=== PATIENT | female | born 1990 | race African-American/Black ===

== ENCOUNTER 2019-09-11 18:37 | Emergency (ER) | payer OTHER ==
[~2019-09-11] VITALS: Ht 170.2 cm; Wt 112.0 kg
--- NOTE | 2019-09-11 19:05 | PHYS DOC ---
Adult General Chief Complaint Chief Complaint: VAGINAL BLEEDING HPI HPI 29-year-old female presents to the emergency department with vaginal bleeding. 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 She describes onset of lower abdominal cramping and vaginal bleeding approximately 30 minute prior to her arrival. She denies any chest pain, shortness of breath, nausea, vomiting, fever. Nothing makes her symptoms worse, nothing makes them better. She does state she has had some clot that has passed. Review of Systems Review of Systems Constitutional: Denies fever or chills [] Respiratory: Denies cough or shortness of breath [] Cardiovascular: No additional information not addressed in HPI [] GI: + abdominal cramping : + vaginal bleeding Musculoskeletal: Denies back pain or joint pain [] Integument: Denies rash or skin lesions [] Neurologic: Denies headache, focal weakness or sensory changes [] All other systems were reviewed and found to be within normal limits, except as documented in this note. Allergies Allergies Allergies Coded Allergies Type Severity Reaction Last Updated Verified Penicillins Allergy Unknown 09/11/19 Yes Physical Exam Physical Exam Constitutional: Well developed, well nourished, no acute distress, non-toxic appearance. [] HENT: Normocephalic, atraumatic, bilateral external ears normal, oropharynx moist, no oral exudates, nose normal. [] Eyes: PERRLA, EOMI, conjunctiva normal, no discharge. [] Cardiovascular:Heart rate regular rhythm, no murmur [] Lungs & Thorax: Bilateral breath sounds clear to auscultation [] Abdomen: Bowel sounds normal, soft, no tenderness, no masses, no pulsatile masses. [] Skin: Warm, dry, no erythema, no rash. [] Extremities: No tenderness,no edema. [] Neurologic: Alert and oriented X 3, no focal deficits noted. [] Psychologic: Affect normal, judgement normal, mood normal. [] : Vaginal exam reveals mild external OS open, bleeding from the cervix appreciated, no evidence of tissue appreciated. Current Patient Data Vital Signs Vital Signs Date Time Temp Pulse Resp B/P (MAP) Pulse Ox O2 Delivery O2 Flow Rate FiO2 09/11/19 20:56 102 17 139/76 (97) 99 Room Air 09/11/19 18:50 98.9 98.9 Lab Values Laboratory Tests Test 09/11/19 19:07 White Blood Count 10.6 x10^3/uL (4.0-11.0) Red Blood Count 4.35 x10^6/uL (3.50-5.40) Hemoglobin 13.5 g/dL (12.0-15.5) Hematocrit 39.4 % (36.0-47.0) Mean Corpuscular Volume 91 fL (79-100) Mean Corpuscular Hemoglobin 31 pg (25-35) Mean Corpuscular Hemoglobin Concent 34 g/dL (31-37) Red Cell Distribution Width 12.8 % (11.5-14.5) Platelet Count 270 x10^3/uL (140-400) Neutrophils (%) (Auto) 62 % (31-73) Lymphocytes (%) (Auto) 31 % (24-48) Monocytes (%) (Auto) 6 % (0-9) Eosinophils (%) (Auto) 1 % (0-3) Basophils (%) (Auto) 1 % (0-3) Neutrophils # (Auto) 6.6 x10^3/uL (1.8-7.7) Lymphocytes # (Auto) 3.2 x10^3/uL (1.0-4.8) Monocytes # (Auto) 0.6 x10^3/uL (0.0-1.1) Eosinophils # (Auto) 0.1 x10^3/uL (0.0-0.7) Basophils # (Auto) 0.1 x10^3/uL (0.0-0.2) Maternal Serum HCG Beta Subunit 25428 mIU/mL (0-5) H Sodium Level 139 mmol/L (136-145) Potassium Level 3.4 mmol/L (3.5-5.1) L Chloride Level 102 mmol/L (98-107) Carbon Dioxide Level 26 mmol/L (21-32) Anion Gap 11 (6-14) Blood Urea Nitrogen 7 mg/dL (7-20) Creatinine 1.0 mg/dL (0.6-1.0) Estimated GFR (Cockcroft-Gault) 65.1 BUN/Creatinine Ratio 7 (6-20) Glucose Level 150 mg/dL (70-99) H Calcium Level 8.5 mg/dL (8.5-10.1) Total Bilirubin 0.1 mg/dL (0.2-1.0) L Aspartate Amino Transferase (AST) < 5 U/L (15-37) L Alanine Aminotransferase (ALT) 11 U/L (14-59) L Alkaline Phosphatase 62 U/L (46-116) Total Protein 7.2 g/dL (6.4-8.2) Albumin 3.2 g/dL (3.4-5.0) L Albumin/Globulin Ratio 0.8 (1.0-1.7) L Laboratory Tests 09/11/19 19:07 Laboratory Tests 09/11/19 19:07 EKG EKG [] Radiology/Procedures Radiology/Procedures [facility] [address] [place] [address] IMAGING REPORT Signed PATIENT: SUSAN TOLENTINO ACCOUNT: [id number] : 1990 LOCATION: ER AGE: 29 SEX: F EXAM STATUS: REG ER ORD. PHYSICIAN: CRISTIANO HERNADEZ MD REASON: approximate 6 week with vaginal bleed PROCEDURE: OB TRANSVAG Obstetric ultrasound less than 14 weeks TECHNIQUE: Transvaginal transducer with grayscale and duplex Doppler sonography utilized. HISTORY: 6 week 3 day female with vaginal bleeding based on last menstrual period. Quantitative hCG 11,409. FINDINGS: Anteverted uterus measures 8.3 x 5.1 x 4.8 cm. Endometrium thickness 1.5 cm. At the lower uterine segment there is an irregular sac like structure with a mean gestational sac diameter of 9 mm estimating sonographic gestational age of 5 weeks 5 days. There is no normal yolk sac evident with a small intracystic echogenic structure present without a well-defined embryo evident either. There is a small focus of fluid at the fundal endometrium. Structure labeled right ovary measures 2.5 x 4.1 x 2.6 cm with intact blood flow. Minimal free fluid surrounding the right ovary. Left ovary was not visualized. IMPRESSION: Intrauterine gestational sac within the lower uterine segment with a mean gestational sac diameter estimating sonographic gestational age of 5 weeks 5 days. No yolk sac or pole evident. This is likely an early intrauterine , although the irregularity of the sac and positioned within the lower uterus increases the probability for an anembryonic gestation (aka blighted ovum) and/or impending spontaneous . Clinical and sonographic follow-up is advised to document development of a pole. Electronically signed by: Tali Prater MD (09/11/2019 9:07 PM) [facility] DICTATED and SIGNED BY: TALI PRATER MD DATE: 09/11/192106 [] Course & Med Decision Making Course & Med Decision Making Pertinent Labs and Imaging studies reviewed. (See chart for details) []29-year-old female presents to the emergency department with vaginal bleeding. 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 She describes onset of lower abdominal cramping and vaginal bleeding approximately 30 minute prior to her arrival. She denies any chest pain, shortness of breath, nausea, vomiting, fever. Nothing makes her symptoms worse, nothing makes them better. She does state she has had some clot that has passed. Laboratory values reviewed, white blood cell count 10.6, beta hCG is 11,409, potassium 3.4, Rh+ Ultrasound completed - post ultrasound, patient expelled organized tissue Discussed findings with patient, would recommend follow-up in 48 hours to trend beta hCG. She will call for appointment tomorrow with her OB. Status post expulsion of tissue, bleeding stopped. Dragon Disclaimer Dragon Disclaimer This electronic medical record was generated, in whole or in part, using a voice recognition dictation system. Departure Departure Impression: Primary Impression: Complete Disposition: 01 HOME, SELF-CARE Condition: STABLE Patient Instructions: Miscarriage, [id number] Additional Instructions: Recommend follow up with PCP 3 - 5 days Return to the ER with worsening symptoms, intractable pain, fever, altered mental status Tylenol/Motrin as needed for pain Beta HCG > 11,000, after US organized tissue expelled with bleeding stopped Recommend follow up with OB for repeat HCG in 48hours Return to the ER with worsening vaginal bleeding CRISTIANO HERNADEZ MD Sep 11, 2019 19:05
[2019-09-11 19:20] LABS: BASO # 0.1 x10^3/uL (0.0-0.2); BASO % 1 % (0-3); EOS # 0.1 x10^3/uL (0.0-0.7); EOS % 1 % (0-3); HEMATOCRIT 39.4 % (36.0-47.0); HEMOGLOBIN 13.5 g/dL (12.0-15.5); LYMPH # 3.2 x10^3/uL (1.0-4.8); LYMPH % 31 % (24-48); MEAN CORPUSCULAR HEMOGLOBIN 31 pg (25-35); MEAN CORPUSCULAR HGB CONC 34 g/dL (31-37); MEAN CORPUSCULAR VOLUME 91 fL (79-100); MONO # 0.6 x10^3/uL (0.0-1.1); MONO % 6 % (0-9); NEUT # 6.6 x10^3/uL (1.8-7.7); NEUT % 62 % (31-73); PLATELET COUNT 270 x10^3/uL (140-400); RED BLOOD COUNT 4.35 x10^6/uL (3.50-5.40); RED CELL DISTRIBUTION WIDTH 12.8 % (11.5-14.5); WHITE BLOOD COUNT 10.6 x10^3/uL (4.0-11.0)
[2019-09-11 19:34] LABS: ANION GAP 11 (6-14); BLOOD UREA NITROGEN 7 mg/dL (7-20); BUN/CREATININE RATIO 7 (6-20); CALCIUM 8.5 mg/dL (8.5-10.1); CARBON DIOXIDE 26 mmol/L (21-32); CHLORIDE 102 mmol/L (98-107); GFR 65.1; GLUCOSE 150 mg/dL (70-99); POTASSIUM 3.4 mmol/L (3.5-5.1); SODIUM 139 mmol/L (136-145)
[2019-09-11 19:39] LABS: ALBUMIN 3.2 g/dL (3.4-5.0); ALBUMIN/GLOBULIN RATIO 0.8 (1.0-1.7); ALK PHOS 62 U/L (46-116); ALT (SGPT) 11 U/L (14-59); TOTAL BILIRUBIN 0.1 mg/dL (0.2-1.0); TOTAL PROTEIN 7.2 g/dL (6.4-8.2)
[2019-09-11 19:58] LABS: AST (SGOT) < 5 U/L (15-37)
[2019-09-11 20:56] VITALS: BP 139/76
--- NOTE | 2019-09-11 21:10 | RAD ---
Obstetric ultrasound less than 14 weeks TECHNIQUE: Transvaginal transducer with grayscale and duplex Doppler sonography utilized. HISTORY: 6 week 3 day female with vaginal bleeding based on last menstrual period. Quantitative hCG 11,409. FINDINGS: Anteverted uterus measures 8.3 x 5.1 x 4.8 cm. Endometrium thickness 1.5 cm. At the lower uterine segment there is an irregular sac like structure with a mean gestational sac diameter of 9 mm estimating sonographic gestational age of 5 weeks 5 days. There is no normal yolk sac evident with a small intracystic echogenic structure present without a well-defined embryo evident either. There is a small focus of fluid at the fundal endometrium. Structure labeled right ovary measures 2.5 x 4.1 x 2.6 cm with intact blood flow. Minimal free fluid surrounding the right ovary. Left ovary was not visualized. IMPRESSION: Intrauterine gestational sac within the lower uterine segment with a mean gestational sac diameter estimating sonographic gestational age of 5 weeks 5 days. No yolk sac or pole evident. This is likely an early intrauterine , although the irregularity of the sac and positioned within the lower uterus increases the probability for an anembryonic gestation (aka blighted ovum) and/or impending spontaneous . Clinical and sonographic follow-up is advised to document development of a pole. Electronically signed by: Sg Prater MD (09/11/2019 9:07 PM) [facility]
--- NOTE | 2019-09-13 22:06 | PATHOLOGY ---
[facility] Accession Number: [id number] . 01 Material submitted: . vagina - VAGINAL DISCHARGE, BLOOD CLOT AND TISSUE . 01 Clinical history: . Patient had frozen embryo transfer six weeks ago. . 02 Diagnosis: "Vaginal discharge; blood clot and tissue": - Immature chorionic villi, decidua and blood clot consistent with products of conception. (CLW/db; 09/13/2019) LBQ 09/13/2019 1507 Local . 02 Electronically signed: . Mary Serrano MD, Pathologist NPI- [id number] . 01 Gross description: . Received in formalin labeled "Brina Lundberg" and further labeled on the requisition as "vaginal discharge; blood clot and tissue" is a 3 g portion of cruz-brown soft tissue (1.7 x 1.7 x 0.6 cm) and red-brown clotted blood (3.5 x 2.6 x 1.1 cm). The specimen is serially sectioned and submitted entirely in cassettes A1-A3. ([facility]; 09/12/2019) SY/[facility] 09/12/2019 1909 Local . 02 Pathologist provided ICD-10: N89.8, O02.89 . 02 CPT . 054263 Specimen Comment: A courtesy copy of this report has been sent to Specimen Comment: [phone]. Specimen Comment: Report sent to [facility]formed at: [facility] [address] [facility] [address], [place] [id number] MD Gibran Carlton MD Phone: [phone] Performed at: [facility] [address], [place] [id number] MD John Mackay MD Phone: [phone]
== END 2019-09-11 21:45 | disposition home or self-care (01) ==
LOC: ER 18:37
DX: O03.9 Complete or unspecified spontaneous abortion without complication (principal); Z3A.01 Less than 8 weeks gestation of pregnancy; Z88.0 Allergy status to penicillin
CPT/HCPCS: 36415; 76817; 80053; 84702; 85025; 86900; 86901; 99285-25